=== PATIENT | male | born 1990 | race African-American/Black ===

== ENCOUNTER 2018-04-11 18:41 | Emergency (ER) | payer MEDICAID ==
[~2018-04-11] VITALS: Ht 190.5 cm; Wt 108.9 kg
[2018-04-11 19:32] LABS: Basophils # (auto) 0 uL; Basophils % (auto) 0.5 % (0.0-2.0); Eosinophils # (auto) 0.2 uL; Eosinophils % (auto) 2.4 % (0.0-7.0); Hematocrit 45.9 % (41.0-53.0); Hemoglobin 15.4 g/dL (13.5-17.5); Lymphocytes # (auto) 1.5 uL; Mean Corpuscular Hemoglobin 28.4 pg (28.0-32.0); Mean Corpuscular Hgb Conc. 33.6 g/dL (32.0-36.0); Mean Corpuscular Volume 84.4 fL (80.0-100.0); Monocytes # (auto) 0.9 uL; Monocytes % (auto) 8.6 % (0.0-12.0); Neutrophils # (auto) 7.3 uL; Neutrophils % (auto) 73.5 % (37.0-80.0); Nucleated Red Blood Cells % 0.1 %; Platelet Count (auto) 172 10^3/uL (140-450); Red Blood Cells 5.44 10^6/uL (4.5-5.90); Red Cell Distribution Width 13.7 % (11.8-14.3)
[2018-04-11 19:36] LABS: Albumin 3.2 g/dL (3.4-5.0); Calcium 7.8 mg/dL (8.5-10.1); Potassium 3.2 mmol/L (3.5-5.1)
[2018-04-11 19:39] LABS: Bilirubin, Total 0.4 mg/dL (0.2-1.0); Total Protein 7.5 g/dL (6.4-8.2)
[2018-04-11] MEDS: ONDANSETRON HCL 4 MG/2 ML VIAL IV ONE (19:57)
[2018-04-11] MEDS: MORPHINE SULFATE 4 MG/ML SYR/VIAL IV ONE (19:58)
[2018-04-11] MEDS: cefTRIAXone 1GM/50ML D5W 50 ML IV ONE (19:58)
[2018-04-11] MEDS: SODIUM CHLORIDE 0.9% 1,000 ML IV ONE (19:58)
[2018-04-11 20:10] LABS: Urine Bacteria NONE SEEN /hpf (None Seen); Urine Blood Negative /uL (Negative); Urine Specific Gravity 1.008 (1.001-1.035); Urine WBC 53 /hpf (0 - 3)
[2018-04-11 23:14] VITALS: BP 115/61
== END 2018-04-11 23:32 | disposition home or self-care (01) ==
LOC: ER 18:41
DX: N45.3 Epididymo-orchitis (principal)
CPT/HCPCS: 36415; 76870; 80053; 81001; 85025; 96365; 96375; 99284; J0696; J2270; J2405; J7030

== ENCOUNTER 2018-12-27 22:25 | Emergency (ER) | payer MEDICAID ==
[~2018-12-27] VITALS: Ht 188 cm; Wt 103.0 kg
[2018-12-27 22:52] LABS: Basophils # (auto) 0.1 uL; Eosinophils # (auto) 0.5 uL; Eosinophils % (auto) 8.9 % (0.0-7.0); Hematocrit 47.9 % (41.0-53.0); Hemoglobin 16.2 g/dL (13.5-17.5); Lymphocytes % (auto) 34.7 % (10.0-50.0); Mean Corpuscular Hemoglobin 28.4 pg (28.0-32.0); Mean Corpuscular Hgb Conc. 33.9 g/dL (32.0-36.0); Mean Corpuscular Volume 83.8 fL (80.0-100.0); Monocytes # (auto) 0.5 uL; Monocytes % (auto) 8.2 % (0.0-12.0); Neutrophils # (auto) 2.8 uL; Neutrophils % (auto) 47.2 % (37.0-80.0); Nucleated Red Blood Cells % 0.2 %; Platelet Count (auto) 182 10^3/uL (140-450); Red Blood Cells 5.71 10^6/uL (4.5-5.90); Red Cell Distribution Width 13.3 % (11.8-14.3); White Blood Cell 5.9 10^3/uL (4.4-10.8)
[2018-12-27 23:10] LABS: Albumin 3.5 g/dL (3.4-5.0); BUN/Creatinine Ratio 8.6; Calcium 8.3 mg/dL (8.5-10.1); Potassium 3.4 mmol/L (3.5-5.1)
[2018-12-27 23:13] LABS: Bilirubin, Total 0.7 mg/dL (0.2-1.0); Total Protein 7.4 g/dL (6.4-8.2)
[2018-12-28 03:00] VITALS: BP 102/66
[2018-12-28] MEDS ORDERED: ENOXAPARIN SOD 100 MG/1 ML SYRINGE SC ONE (03:30)
== END 2018-12-28 03:50 | disposition home or self-care (01) ==
LOC: ER 22:26
DX: I82.401 Acute embolism and thrombosis of unspecified deep veins of right lower extremity (principal); F17.210 Nicotine dependence, cigarettes, uncomplicated; Z91.19 Patient's noncompliance with other medical treatment and regimen
CPT/HCPCS: 36415; 71046; 80053; 85025; 93971; 96372; 99284; J1650